=== PATIENT | female | born 1975 | race Caucasian/White ===

== ENCOUNTER → 2017-06-12 | Emergency (ER) | payer OTHER ==
[~2017-06-12] VITALS: Wt 72.6 kg
[~2017-06-12] MED LIST: CYCLOBENZAPRINE10 MG PO; LIDODERM1 EACH T; MEDROL DOSEPAK4 MG PO; NAPROSYN500 MG PO
== END ==
LOC: ED 15:20
DX: G89.29 Other chronic pain (principal); M54.31 Sciatica, right side

== ENCOUNTER → 2017-06-22 | Outpatient (CLI) | payer OTHER | END | disposition home or self-care (01) | LOC: MRI 13:00 | DX: M48.061 Spinal stenosis, lumbar region without neurogenic claudication (principal); M53.87 Other specified dorsopathies, lumbosacral region; M25.551 Pain in right hip ==

== ENCOUNTER → 2018-07-05 | Outpatient (CLI) | payer OTHER ==
[~2018-07-05] MED LIST changes: +IBU800 MG PO; +KETOROLAC10 MG PO; +TYLENOL325 M1 PO
== END | disposition home or self-care (01) ==
LOC: MAMMO 01:26
DX: Z12.31 Encounter for screening mammogram for malignant neoplasm of breast (principal)

== ENCOUNTER 2018-10-14 19:07 | Emergency (ER) | payer OTHER ==
[~2018-10-14] VITALS: Wt 74.8 kg
[~2018-10-14 19:07] MED LIST changes: -IBU800 MG PO; -KETOROLAC10 MG PO; -TYLENOL325 M1 PO
[2018-10-14 20:10] LABS: BASO # 0.1 10*3/uL (0.0-0.1); BASO % 1.4 % (0.0-1.0); EOS # 0.4 10*3/uL (0.0-0.4); EOS % 4.5 % (1.0-4.0); HEMATOCRIT 34.3 % (37.0-47.0); HEMOGLOBIN 10.9 g/dl (12.0-16.0); LYMPH # 2.6 10*3/uL (1.3-4.4); LYMPH % 32.1 % (27.0-41.0); MEAN CELL VOLUME 89.8 fl (81.0-99.0); MEAN CORPUSCULAR HGB 28.5 pg (27.0-31.0); MEAN CORPUSCULAR HGB CONC 31.8 g/dl (33.0-37.0); MEAN PLATELET VOLUME 9.2 fl (9.6-12.3); MONO # 0.4 10*3/uL (0.1-1.0); MONO % 5.2 % (3.0-9.0); NEUT # 4.5 10*3/uL (2.3-7.9); NEUT % 56.5 % (47.0-73.0); PLATELET COUNT AUTOMATED 401 10*3/uL (130-400); RED BLOOD COUNT 3.82 10*6/uL (4.10-5.10); RED CELL DISTRI WIDTH 15.7 % (0-14.5)
[2018-10-14 20:24] LABS: ALBUMIN 3.2 gm/dl (3.1-4.5); ALKALINE PHOSPHATASE 67 U/L (45-117); BUN 7 mg/dl (7-24); CHLORIDE 109 mmol/L (98-107); CREATININE 0.67 mg/dL (0.55-1.02); POTASSIUM 3.8 mmol/L (3.5-5.1); SGOT/AST 12 IU/L (3-35); SGPT/ALT 18 U/L (12-78); SODIUM 140 mmol/L (136-145); TOTAL PROTEIN 6.8 gm/dL (6.4-8.2)
[2018-10-14 20:43] LABS: BILIRUBIN NEGATIVE (NEGATIVE); BLOOD TRACE-INTACT (NEGATIVE); CLARITY CLEAR (CLEAR); COLOR YELLOW (YELLOW); GLUCOSE NEGATIVE (NEGATIVE); KETONE NEGATIVE (NEGATIVE); LEUKO ESTERASE NEGATIVE (NEGATIVE); NITRITE NEGATIVE (NEGATIVE); PH 6.5 (5.0-9.0); SPECIFIC GRAVITY <= 1.005 (1.005-1.030); UROBILINOGEN 0.2 E.U./dl (0.2-1.0)
[2018-10-14 20:51] LABS: EPITHELIAL CELLS 0-2
[2018-10-14] MEDS ORDERED: IBU800 MG PO (22:23)
[2018-10-14] MEDS ORDERED: CYCLOBENZAPRINE10 MG PO (22:23)
[2018-10-14] MEDS ORDERED: KETOROLAC10 MG PO (22:23)
[2018-10-14] MEDS ORDERED: TYLENOL325 M1 PO (22:23)
== END 2018-10-14 23:35 | disposition home or self-care (01) ==
LOC: ED 19:07
PROVIDERS: Student in an Organized Health Care Education/Training Program
DX: R31.9 Hematuria, unspecified (principal); R10.9 Unspecified abdominal pain; M54.5 Low back pain; G89.29 Other chronic pain